=== PATIENT | female | born 1990 | race Caucasian/White ===

== ENCOUNTER 2021-03-21 12:12 | Emergency (ER) | payer OTHER ==
[~2021-03-21] VITALS: Ht 152.4 cm; Wt 122.7 kg
[2021-03-21 12:26] VITALS: TEMP 99.5
[2021-03-21 14:01] LABS: BASO # 0.1 K/mm3 (0.0-0.2); BASO % 0.4 % (0.0-2.0); EOS % 0.1 % (0-4.0); GRAN # 11.2 K/mm3 (1.4-6.5); GRAN % 88.4 % (42.2-75.2); HEMATOCRIT 40.4 % (37.0-47.0); LYMPH # 0.7 K/mm3 (1.2-3.4); LYMPH % 5.8 % (20.0-51.0); MEAN CELL VOLUME 89 fl (80.0-100.0); MEAN CORPUSCULAR HEMOGLOBIN 31 pg (27.0-31.0); MEAN CORPUSCULAR HGB CONC 35 g/dl (33.0-37.0); MEAN PLATELET VOLUME 10.5 fl (7.4-10.4); MONO # 0.6 K/mm3 (0.1-0.6); PLATELET COUNT 341 K/mm3 (130-400); RED BLOOD COUNT 4.55 M/mm3 (4.10-5.30); REDCELL DISTRIBUTION WIDTH-CV 12.6 % (11.5-14.5)
[2021-03-21 14:12] LABS: BILIRUBIN,TOTAL 0.8 mg/dL (0.2-1.2); CALCIUM 8.9 mg/dL (8.4-10.2); CREATININE, serum 0.99 mg/dL (0.57-1.11); POTASSIUM 4.1 mmol/L (3.5-4.5); TOTAL PROTEIN 7.2 gm/dL (6.2-8.1)
[2021-03-21 14:15] LABS: MUCOUS Present /lpf; PH 5 (5-8); URINE APPEARANCE Hazy; URINE BACTERIA Occasional /hpf; URINE BILIRUBIN Negative (NEGATIVE); URINE BLOOD Negative (NEGATIVE); URINE COLOR Yellow; URINE GLUCOSE Negative (NEGATIVE); URINE KETONE Negative (NEGATIVE); URINE LEUKOCYTE ESTERASE Negative (NEGATIVE); URINE NITRATE Negative (NEGATIVE); URINE PROTEIN(semi-quant) Negative (NEGATIVE); URINE RBC 0-2 /hpf; URINE UROBILINOGEN Negative (NEGATIVE); URINE WBC 0-2 /hpf
[2021-03-21 14:26] LABS: COLLECTION METHOD CLEAN CATCH
[2021-03-21] MEDS ORDERED: ZOFRAN ODT4 MG PO (14:42)
[2021-03-21 14:49] VITALS: BP 118/77; PULSE 91
== END 2021-03-21 15:30 | disposition home or self-care (01) ==
LOC: COL.ER 12:12
PROVIDERS: Student in an Organized Health Care Education/Training Program
DX: A08.4 Viral intestinal infection, unspecified (principal); Z20.822 Contact with and (suspected) exposure to COVID-19
CPT/HCPCS: J2405; J7030

== ENCOUNTER 2021-06-04 02:33 | Emergency (ER) | payer OTHER ==
[~2021-06-04] VITALS: Ht 157.5 cm; Wt 113.6 kg
[~2021-06-04 02:33] MED LIST: ZOFRAN ODT4 MG PO
[2021-06-04 03:23] VITALS: BP 140/85; PULSE 105; TEMP 98.7
== END 2021-06-04 03:23 | disposition home or self-care (01) ==
LOC: COL.ER 02:33
DX: U07.1 COVID-19 (principal)

== ENCOUNTER 2021-11-12 20:46 | Inpatient (IN) | payer OTHER ==
[~2021-11-12] VITALS: Ht 157.5 cm; Wt 115.6 kg
[2021-11-12 21:45] LABS: BASO # 0.1 K/mm3 (0.0-0.2); BASO % 0.3 % (0.0-2.0); EOS # 0.1 K/mm3 (0.0-0.7); EOS % 0.4 % (0.0-4.0); GRAN # 15.9 K/mm3 (1.4-6.5); HEMATOCRIT 43.9 % (37.0-47.0); HEMOGLOBIN 15.1 g/dl (12.5-16.0); LYMPH # 2.3 K/mm3 (1.2-3.4); LYMPH % 11.8 % (20.0-51.0); MEAN CELL VOLUME 89 fl (80.0-100.0); MEAN CORPUSCULAR HEMOGLOBIN 31 pg (27-31); MEAN CORPUSCULAR HGB CONC 34 g/dl (33.0-37.0); MEAN PLATELET VOLUME 10.3 fl (7.4-10.4); MONO # 0.8 K/mm3 (0.1-0.6); PLATELET COUNT 318 K/mm3 (130-400); RED BLOOD COUNT 4.92 M/mm3 (4.10-5.30); REDCELL DISTRIBUTION WIDTH-CV 12.5 % (11.5-14.5)
[2021-11-12 22:04] LABS: ALANINE AMINOTRANSFERASE 20 U/L (0-55); ALBUMIN 3.9 gm/dL (3.5-5.0); ALKALINE PHOSPHATASE 72 U/L (40-150); ANION GAP 14 mmol/L (7-16); AST,SGOT 22 U/L (5-34); BILIRUBIN,TOTAL 0.2 mg/dL (0.2-1.2); BLOOD UREA NITROGEN 13 mg/dL (7-19); CALCIUM 9.3 mg/dL (8.4-10.2); CARBON DIOXIDE 22 mmol/L (22-29); CHLORIDE 102 mmol/L (98-107); CREATININE, serum 1.11 mg/dL (0.57-1.11); GLUCOSE 121 mg/dL (70-99); LIPASE 33 U/L (8-78); POTASSIUM 4.6 mmol/L (3.5-4.5); SODIUM 138 mmol/L (136-145); TOTAL PROTEIN 7.9 gm/dL (6.2-8.1)
[2021-11-12 22:11] LABS: TROPONIN-I < 0.010 ng/mL (0.00-0.033)
[2021-11-12 23:09] LABS: COLLECTION METHOD CLEAN CATCH
[2021-11-12 23:15] LABS: MUCOUS Present (NOT PRESENT); PH 5 (5-8); SQUAMOUS EPITHELIAL 0-2 /hpf (0-10); URINE APPEARANCE Clear (CLEAR/HAZY); URINE BACTERIA None Seen /hpf (NONE SEEN); URINE BILIRUBIN Negative (NEGATIVE); URINE BLOOD Negative (NEGATIVE); URINE COLOR Yellow (YELLOW); URINE GLUCOSE Negative (NEGATIVE); URINE KETONE Negative (NEGATIVE); URINE LEUKOCYTE ESTERASE Negative (NEGATIVE); URINE NITRATE Negative (NEGATIVE); URINE PROTEIN(semi-quant) Negative (NEGATIVE); URINE RBC 0-2 /hpf (0-2); URINE UROBILINOGEN Negative (NEGATIVE)
[2021-11-13] VITALS (11 sets, daily range): BP systolic 91–121; BP diastolic 49–79; PULSE 71–123; TEMP 98.5–99.6
--- NOTE | 2021-11-13 04:00 | NUR ---
Pt recieved from ED.
[2021-11-13] MEDS ORDERED: PROMETHAZINE12.5 M5 PO (04:06)
--- NOTE | 2021-11-13 06:11 | NUR ---
Pt alert and oriented, follows commands. Ambulates with stanby assistance. Voided x1 when arrived to the unit. Pt reported left lower and left-sided abdominal pain on arrival. Pt also reported nausea on arrival from ED. Prn pain medication and prn zofran were administered per orders. NS continues to run at 125 ml/hr. Shift assessment performed. Admission intake and admission assessment performed. Medication rx reviewed and completed. Allergies confirmed. COVID and infectious disease assessments completed. No vomiting since arriving to unit. No syncopal episode on unit. Pt denies current dizziness/headache. VS stable. HR consistently running in 120's. Pt reports she typically has an elevated HR. BP softer, but stable. Satting WNL on room air. Low grade temp of 99.6F. No shivering or diaphoresis noted. Pt NPO since arriving to unit. IV antibx and IV fluids continuing per orders. No significant skin issues noted. Oriented pt to room and educated to utilize call lemus before getting OOB. Pt resting currently. Pt does not report any questions at this time, will continue to monitor.
--- NOTE | 2021-11-13 11:40 | NUR ---
DENTON met with the patient and her , Erik (ph#[phone]), to discuss discharge plan. The patient was sleeping during intake. The patient lives in [place] with her and [id number]. Erik reports that the patient is independent with ADLs and does not have any DME. The patient receives primary care from [facility] and she receives her medications from [facility]. The patient does not have a DPOA-HC, but her was interested in obtaining a form. DENTON provided. Erik reports that plan is for the patient to return home with him upon discharge. No additional needs at this time. *Discharge plan: home with *
--- NOTE | 2021-11-13 12:37 | NUR ---
THE PATIENT HAS BEEN COMPLAINING OF PAIN TO THE LEFT EYE PREDOMINANTLY, HOWEVER BOTH EYES ARE VERY RED AND THE LEFT EYE IS SWOLLEN AND BLOODSHOT. PATIENT COMPLAINS OF SEVERE 9/10 PAIN. NO OTHER CONERNS AT THIS TIME.
[2021-11-14 00:05] VITALS: BP 125/74; PULSE 83; TEMP 97.9
--- NOTE | 2021-11-14 02:28 | NUR ---
Pt alert and oriented, resting quietly. Follows commands. Tolerating PO. Denies nausea/vomiting/dizziness. Denies abdominal pain. Reports pain in the left eye with watering. Eye appears to be red and watery. Pt continued to rub eye. Educated pt to avoid putting her fingers in the eye. Administered prescribed eye gtt's and applied warm compress to pt's eye. Pt reported relief. 3 laproscopic abdominal sites are dressed with bandaids. Sites are clean/dry/intact with no drainage or edema. Pt titrated from 2L NC to room air. Shift assessment performed. Medications administered per orders and education provided. VS stable. LR continues to run. Administered PO antibx per orders. Pt tolerating PO pills with water. No significant skin issues noted. Pt does not report any questions at this time, will continue to monitor.
[2021-11-14 04:26] VITALS: BP 143/74; PULSE 64; TEMP 98.2
--- NOTE | 2021-11-14 06:18 | NUR ---
No adverse events overnight. Pt alert and oriented, resting. VS stable. Pt remains on room air. LR continues running. PO antibx administered overnight. Pt still continues to report significant left eye pain, redness, and watering. Administered ordered eye gtts overnight and applied a cool and warm compress. Pt reports no relief and states it has began to bother her right eye as well now. Pt has requested that she see an eye doctor for the issue. Will discuss with day shift RN this a.m. Abdominal lap sites remain clean/dry/intact. No edema/drainage from 3 sites. Pt does not report any other questions at this time, will continue to monitor.
[2021-11-14 08:10] VITALS: BP 125/81; PULSE 79; TEMP 98.4
[2021-11-14 08:18] LABS: HEMATOCRIT 39.1 % (37.0-47.0); MEAN CELL VOLUME 92 fl (80.0-100.0); MEAN CORPUSCULAR HEMOGLOBIN 30 pg (27-31); MEAN CORPUSCULAR HGB CONC 33 g/dl (33.0-37.0); MEAN PLATELET VOLUME 10.7 fl (7.4-10.4); PLATELET COUNT 259 K/mm3 (130-400); RED BLOOD COUNT 4.24 M/mm3 (4.10-5.30)
[2021-11-14] MEDS ORDERED: FLAGYL500 MG PO (08:26)
[2021-11-14] MEDS ORDERED: MOTRIN 800800 MG/TAB PO (08:27)
[2021-11-14] MEDS ORDERED: PERCOCET 325 MG1 TA2 PO (08:27)
[2021-11-14] MEDS ORDERED: MONODOX100 PO (08:28)
[2021-11-14 09:19] LABS: HEMOGLOBIN 12.8 g/dl (12.5-16.0)
--- NOTE | 2021-11-14 09:25 | NUR ---
CONTACTED DR. STEVENS REGARDING A WBC CRITICAL AT 24.0.
[2021-11-14 09:30] LABS: BAND 19 % (0-10); EOSINOPHIL 1 % (0-4); LYMPHOCYTE 5 % (20.0-51.0); NEUTROPHILS 73 % (42.0-75.2); PLATELET ESTIMATE NORMAL (NORMAL)
--- NOTE | 2021-11-14 09:30 | NUR ---
Initial visit; Patient and her thanked [employer] for looking in on her and offering comfort, encouragement and prayer. Patient having a hard time. [employer] will keep Ravindra in her prayers.[email or web address]
--- NOTE | 2021-11-14 11:00 | NUR ---
DISCHARGE EDUCATION WAS PROVIDED BY JOHNNIE CHÁVEZ RN. PT VERBALIZED UNDERSTANDING. PT WILL GO TO FOLLOW UP WITH [facility] FOR EYE DISCOMFORT. NO OTHER CONCERNS.
== END 2021-11-14 11:00 | disposition home or self-care (01) | DRG 749 ==
LOC: COL.ER 20:46 → MEDICAL 11-13 01:32 → EDBEDREQ 11-13 03:26 → MEDICAL 11-13 07:40
PROVIDERS: Emergency Medicine Emergency Medical Services; ADMIT Obstetrics & Gynecology
PROC: 0DNW4ZZ Release Peritoneum, Percutaneous Endoscopic Approach (ICD-10-PCS; 2021-11-13)
PROC: 0W9J4ZX Drainage of Pelvic Cavity, Percutaneous Endoscopic Approach, Diagnostic (ICD-10-PCS; principal; 2021-11-13 08:15)
DX: N70.93 Salpingitis and oophoritis, unspecified (principal); E87.2 Acidosis; N83.202 Unspecified ovarian cyst, left side; D72.829 Elevated white blood cell count, unspecified; N73.6 Female pelvic peritoneal adhesions (postinfective); F41.9 Anxiety disorder, unspecified; K59.09 Other constipation; Z88.2 Allergy status to sulfonamides; Z91.018 Allergy to other foods; Z72.89 Other problems related to lifestyle; Z86.16 Personal history of COVID-19
CPT/HCPCS: J0696; J1100; J1885; J2270; J2405; J2543; J2704; J3010; J7030; J7120; Q9967